=== PATIENT | female | born 2000 | race Caucasian/White ===

== ENCOUNTER 2021-05-27 10:22 | Outpatient (REF) | payer OTHER, SELFPAY ==
[2021-05-27 14:37] LABS: Influenza A PCR NEGATIVE (Negative); Influenza B PCR NEGATIVE (Negative); Resp Syncy Virus RNA Qual PCR NEGATIVE (Negative); SARS COV2 PCR INHOUSE POSITIVE (Negative)
== END 2021-05-27 10:23 | disposition home or self-care (01) ==
LOC: HO.LAB 10:22
PROVIDERS: Visit Provider Hospitalist
DX: Z20.822 Contact with and (suspected) exposure to COVID-19 (principal); R68.89 Other general symptoms and signs
CPT/HCPCS: 0241U